=== PATIENT | male | born 1990 | race Caucasian/White ===

== ENCOUNTER 2019-04-16 08:54 | Emergency (ER) | payer SELFPAY ==
[~2019-04-16] VITALS: Ht 180.3 cm; Wt 95.3 kg
[~2019-04-16 08:54] MED LIST: IBUP-44 PO
[2019-04-16 08:59] VITALS: BP 145/92
--- NOTE | 2019-04-16 09:01 | NUR ---
TO ED LOBBY WAITING FOR BED. VSS.
--- NOTE | 2019-04-16 09:30 | NUR ---
CALLED FOR BED PLACEMENT NO ANSWER.
--- NOTE | 2019-04-16 09:40 | NUR ---
CALLED FOR BED PLACEMENT NO ANSWER.
--- NOTE | 2019-04-16 09:50 | NUR ---
CALLED FOR BED PLACEMENT. NO ANSWER.
[2019-04-16 10:00] VITALS: BP 145/92
--- NOTE | 2019-04-16 10:00 | NUR ---
PATIENT LEFT WITHOUT BEING SEEN BY DR. CLIFTON. NO FURTHER CARE PROVIDED FOR PATIENT.
== END 2019-04-16 09:30 | disposition left against medical advice (07) ==
LOC: MED 08:54
DX: K08.89 Other specified disorders of teeth and supporting structures (principal); Z53.21 Procedure and treatment not carried out due to patient leaving prior to being seen by health care provider